=== PATIENT | male | born 1955 | race Caucasian/White ===

== ENCOUNTER → 2018-12-13 | Outpatient (CLI) | payer MEDICARE ==
--- NOTE | 2018-12-13 15:10 | CT ---
EXAMINATION TYPE: CT image guided sinus DATE OF EXAM: 12/13/2018 COMPARISON: None HISTORY: chronic sinusitis CT DLP: 564 mGycm. Automated Exposure Control for Dose Reduction was Utilized. TECHNIQUE: CT scan of the sinuses is performed without contrast, axial images are obtained, coronal r eformatted images are also reviewed. FINDINGS: There appears to be evidence of previous surgery. Extensive mucosal thickening involving th e ethmoid air cells and maxillary sinuses are noted. The new ostium of the maxillary sinuses are gutiérrez nt bilaterally. Slight nasal septal deviation suspected. Frontal sinus has a normal appearance. Sphen oidal sinus has a normal appearance. Visualized portion of mastoid air cells show no abnormal opacification. The globes are intact bilate rally. IMPRESSION: 1. Postsurgical changes with persistent chronic appearing sinusitis as discussed above.
== END | disposition home or self-care (01) ==
LOC: RADCTMAIN 13:14
PROVIDERS: ATTEND Otolaryngology
DX: J32.9 Chronic sinusitis, unspecified (principal); Z98.890 Other specified postprocedural states
CPT/HCPCS: 70486